=== PATIENT | female | born 1985 | race Two or more races ===

== ENCOUNTER 2019-06-12 12:11 | Emergency (ER) | payer OTHER ==
[~2019-06-12] VITALS: Ht 165.1 cm; Wt 104.8 kg
[2019-06-12 12:21] VITALS: BP 138/96
== END 2019-06-12 14:32 | disposition home or self-care (01) ==
LOC: ER 12:25
DX: N92.6 Irregular menstruation, unspecified (principal); Z32.02 Encounter for pregnancy test, result negative
CPT/HCPCS: 36415; 81025; 84702